=== PATIENT | female | born 1995 | race Caucasian/White ===

== ENCOUNTER 2016-11-11 21:51 | Emergency (ER) | payer BC ==
[2016-11-11] MEDS ORDERED: METHYLPREDNISOLONE ACETATE 80 MG/ML VIAL IM ONE (22:15)
[2016-11-11] MEDS ORDERED: DEXAMETHASONE SOD PHOSPHATE 10 MG/ML VIAL IM ONE (22:15)
--- NOTE | 2016-11-11 22:19 | ERNOTE ---
Time Seen by Provider: 11/11/16 22:03 Stated Complaint: ALLERIGIES Presenting Symptoms:: cough, runny nose Source: patient Exam Limitations: no limitations Immunizations: IMMUNIZATION HX Immunizations Up to Date Yes History of Influenza Vaccine No Hx Pneumococcal Vaccination No Allergies/Adverse Reactions: Allergies No Known Allergies Allergy (Verified 11/11/16 21:58) Home Medications: HOME MEDICATIONS Amoxicillin/Potassium Clav [Amox Tr-K Clv 875-125 mg Tab] 1 each PO BID [Last Taken Unknown] Cetirizine HCl 10 mg PO DAILY 11/11/16 [Last Taken Unknown] Methylprednisolone [Medrol Dosepak] 4 mg PO DAILY #21 tab.ds.pk 11/11/16 [Last Taken Unknown] - History of Present Ilness Narrative: Pt has had nasal congestion that is off and on, lasts for a few days then seems to get better then comes back for a few days. She was seen by another ED and given amoxil and cetirizine and is not improving Timing: getting worse Severity: moderate Frequency/Possible Cause: Reports: frequent episodes Modifying Factors - Improves: Reports: nothing Modifying Factors - Worsens: Reports: lying down Review of Systems - Review of Systems Constitutional: Present: recent illness. Absent: fever, chills EYE: Present: no symptoms reported ENT: Present: See HPI. Absent: ear pain, sore throat Respiratory: Present: See HPI, cough Cardiology: Absent: chest pain Gastrointestinal/Abdominal: Present: no symptoms reported Genitourinary: Present: no symptoms reported Musculoskeletal: Present: no symptoms reported Skin: Present: no symptoms reported Neurological: Present: no symptoms reported Endocrine: Present: no symptoms reported Hematologic/Lymphatic: Present: no symptoms reported Psych: Present: no symptoms reported - Patient's Past Medical History Patient History - Medical: No pertinent hx Patient History - Cardiac/Respiratory: Asthma Patient History - Cancer: No Hx of Cancer Patient History - Surgical Procedures: T & A Patient History - Other: None LMP (females 10-50): 3 weeks - Social History Living Situations: home Psych History: No pertinent hx - Immunizations Immunizations Up to Date: Yes Hx Pneumococcal Vaccination: No History of Influenza Vaccine: No Physical Exam - Physical Exam General Appearance: Present: wd/wn, alert, no apparent distress Eye Exam: Normal inspection: bilateral Ears, Nose, Throat: Present: nasal congestion - very pale with clear drainage. Absent: pharyngeal erythema, tonsillar swelling Neck: Present: normal inspection, nontender, supple Respiratory: Present: no respiratory distress, normal breath sounds, lungs clear Cardiovascular/Chest: Present: regular rate, rhythm, no murmur Extremity Exam: Present: normal inspection, normal range of motion Neurological Exam: Present: alert, oriented, normal mood/affect Skin Exam: Present: normal color, warm/dry Lymphatic Exam: Present: no adenopathy ED Progress - Vital Signs Vital Signs: Vital Signs 11/11/16 21:54 Temperature 36.2 C L Pulse Rate 69 Respiratory 16 Rate Blood Pressure 131/84 O2 Sat by Pulse 98 Oximetry - Progress/Reassessment Chief Complaint: Upper Respiratory Symptoms Departure - Departure Clinical Impression: Allergic rhinitis Qualifiers: Chronicity: chronic Allergic rhinitis trigger: pollen Allergic rhinitis seasonality: seasonal Qualified Code(s): J30.1 - Allergic rhinitis due to pollen Disposition: Home Follow Up Needed Condition: Good Instructions: Allergic Rhinitis Additional Instructions: Start the prescription on Tuesday or Tuesday. See your regular doctor for further treatment if you continue to have symptoms Referrals: Jemima Wilson MD [Primary Care Provider] - Prescriptions: Methylprednisolone [Medrol Dosepak] 4 mg PO DAILY #21 tab.ds.pk
[2016-11-11] MEDS ORDERED: METHYLPREDNISOLONE ACETATE 80 MG/ML VIAL ONE (22:21)
[2016-11-11] MEDS ORDERED: DEXAMETHASONE SOD PHOSPHATE 10 MG/ML VIAL ONE (22:21)
[2016-11-11 22:40] VITALS: BP 115/80
== END 2016-11-11 22:35 | disposition home or self-care (01) ==
LOC: ER 21:51
DX: J30.1 Allergic rhinitis due to pollen (principal)